=== PATIENT | female | born 1945 | race Caucasian/White ===

== ENCOUNTER 2019-03-24 17:58 | Inpatient (IN) | payer OTHER ==
[~2019-03-24] VITALS: Ht 162.6 cm; Wt 66.1 kg
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
[2019-03-24 19:36] VITALS: BP 147/81
[2019-03-24 19:40] VITALS: BP 155/101
[2019-03-24] MEDS ORDERED: ASA-BUTALB-CAF1 EACH PO (20:00)
[2019-03-24] MEDS ORDERED: WELLBUTRIN XL150 MG (20:00)
[2019-03-24] MEDS ORDERED: CARVEDILOL12.5 MG (20:04)
[2019-03-24] MEDS ORDERED: DEPAKOTE 250MG250 MG PO (20:08)
[2019-03-24] MEDS ORDERED: IRON325 M1 PO (20:10)
[2019-03-24] MEDS ORDERED: LISINOPRIL2.5 MG PO ×2 (20:12→20:14)
[2019-03-24] MEDS ORDERED: MOBIC7.5 MG PO (20:15)
[2019-03-24] MEDS ORDERED: PRAVACHOL40 MG PO (20:15)
[2019-03-24] MEDS ORDERED: SEROPHENE50 MG (20:17)
[2019-03-24] MEDS ORDERED: SEROQUEL 50 MG50 M1 (20:20)
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
[2019-03-25 01:33] LABS: URINE BILIRUBIN NEGATIVE (Negative); URINE BLOOD NEGATIVE (Negative); URINE CLARITY CLOUDY; URINE COLOR YELLOW; URINE GLUCOSE-RANDOM* NEGATIVE (Negative); URINE KETONES TRACE (Negative); URINE NITRITE-REFLEX NEGATIVE (Negative); URINE PROTEIN (DIPSTICK) NEGATIVE (Negative); URINE UROBILINOGEN 0.2 E.U./dl (0.2-1.0)
[2019-03-25 01:37] LABS: URINE LEUKOCYTES-REFLEX 2+ (Negative)
[2019-03-25 01:47] LABS: SQUAMOUS 0-3 Few /LPF (0-3); WBC CLUMPS Few (None Seen)
[2019-03-25 01:48] LABS: BACTERIA-REFLEX >30 Many /HPF (None Seen); CASTS None Seen /LPF (None Seen); CRYSTALS None Seen /LPF (None Seen); MUCUS 0-3 Light strn/LPF (None Seen); URINE RBC 0-2 Rare /HPF (0-2)
[2019-03-25 01:52] VITALS: BP 155/101
[2019-03-25 02:14] VITALS: BP 155/101
[2019-03-25 06:26] LABS: ABSOLUTE NEUTROPHILS 2.3 thou/uL (1.4-8.2); BASOPHILS 0.7 % (0.0-2.0); EOSINOPHILS 3.7 % (0.0-3.0); HEMATOCRIT 39.2 % (37.0-47.0); HEMOGLOBIN 12.8 gm/dL (12.0-15.0); LYMPHOCYTES 39.9 % (24.0-44.0); MCH 30.9 pg (26.0-34.0); MCHC 32.6 g/dL (28.0-37.0); MCV 94.9 fL (80.0-100.0); MONOCYTES 9.1 % (1.0-8.0); PLATELET COUNT 176 thou/uL (150-400); POLYS 46.6 % (36.0-66.0); RBC 4.13 mil/uL (4.20-5.00); RDW 13.6 % (10.5-14.5)
[2019-03-25 06:41] LABS: ALBUMIN 3.1 g/dL (3.4-5.0); CALCIUM 9.3 mg/dL (8.5-10.1); CREATININE 0.9 mg/dL (0.6-1.0); MAGNESIUM 1.9 mg/dL (1.8-2.4); POTASSIUM 3.7 mmol/L (3.5-5.1); TOTAL BILIRUBIN 0.3 mg/dL (<0.1-1.0); TOTAL PROTEIN 6.6 g/dL (6.4-8.2)
[2019-03-25 07:11] LABS: TSH 6.172 uIU/mL (0.358-3.740)
[2019-03-25 08:10] VITALS: BP 170/93
[2019-03-25 09:37] VITALS: BP 170/93
--- NOTE | 2019-03-25 10:00 | NUR ---
0710: Report rec from [facility] shift, care assumed. [id number]: Ambulatory independently in room, halls and to DRJareth Resistant to re-direction and encouragement to eat meals, oriented to name only, pleasant mood upon initial introduction but then became arguementative and refused to eat a.m. meal. Takes meds whole w/o difficulty, needed 3 attempts before pt would take meds. Attended 0900 therapy group, no participation noted. Red/purple bruise noted to top of left hand, approx 3cm circular area, appears to have been from lab draw, will cont to monitor.
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
--- NOTE | 2019-03-25 20:04 | NUR ---
ASSUMED CARE @ 19:15 ON 03/25/19, IN DAY ROOM ORIENTED TO PERSON ONLY. HRRR, LUNGS DIMINISHED, ABD NORMOACTIVE X 4 Q.
[2019-03-25 23:34] VITALS: BP 152/93
--- NOTE | 2019-03-26 01:03 | NUR ---
TOOK HS MEDS WHOLE WITH APPLE JUICE AND YOGART FOR SNACKS. PATIENT HAD DIFFICULTY SWOLLOWING THE LARGER TABLETS. WILL TRY CRUSHING MEDS NEXT TIME IN YOGART OR PUDDING. ORIENTED X 1. WHEN ASKED A QUESTION, RESPONDS WITH A CONFUSED RAMBLING STORY UNRELATED TO THE QUESTION ASKED. AFFECT PLEASANT AND CALM. CONFUSION AND WORD SALAD NOTED. IN BED, WITH BED SET IN LOW POSITION, BED ALARM SET. WILL CONTINUE TO MONITOR Q 12 MINUTES FOR PATIENT SAFETY.
[2019-03-26 01:19] VITALS: BP 152/93
--- NOTE | 2019-03-26 06:34 | NUR ---
SLEPT 7.4 HOURS OVERNIGHT. CONFUSION NOTED, PLEASANT AFFECT. NEEDS MEDS CRUSHED, HAD TROUBLE SWOLLOWING HER LARGE TABLETS.
--- NOTE | 2019-03-26 14:42 | NUR ---
PATIENT WAS IRRITABLE AT FIRST THIS MORNING BUT QUICKLY BECAME MORE POSITIVE MORNING PROGRESSED. HAD MEDICATIONS CRUSHED IN PUDDING AND TOLERATED WELL. DENIES ANY S/I OR H/I - AMBULATES AROUND SLOWLY WITH WALKER. MAKES NEEDS KNOWN AND ATE WELL TODAY. HAD IM OF ROCEPHIN FOR UTI LATER THIS MORNING. ORDERED BY DR. PERRY TO TREAT UTI. TOLERATED WELL. PATIENT HAS BEEN SMILING AND PLEASANT REMAINDER OF THE DAY. QUIET AND NO SIGNS OF AGITAION OR IRRITABILITY TODAY. WAS UP ALL DAY SITTING IN DINING AREA WITH PEERS.
[2019-03-26 20:12] VITALS: BP 125/82
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
[2019-03-26 23:25] VITALS: BP 125/82
--- NOTE | 2019-03-26 23:34 | NUR ---
PATIENT IS COMBATIVE AND YELLING AND HITTING AND TRYING TO BITE CARE STAFF WHEN DOING INCONTINENT CARE. PATIENT SAT ON SIDE OF HER BED QUIETLY AFTER STAFF LEFT. THIS NURSE SPOKE WITH PATIENT AND PATIENT WAS CALM AT THIS TIME. SHE DID GET TEARY AND SAID, " I JUST WANT TO ." I ASKED HER WHY SHE WANTED THIS AND SHE SAID SHE IS JUST TIRED. SHE DOES NOT HAVE A PLAN AND STATES SHE NEEDS TO STAY HERE FOR HER KIDS. PATIENT STOPPED TEARING AND CAME OUT OF ROOM A FEW MINUTES LATER AND WAS SMILING AND CALM. HER GLUCOSE LEVEL WAS 85. PATIENT HAD YOGURT AND PUDDING AND THICKENED HONEY OJ WITH PILLS. PATIENT IS JUST NOW WALKING BACK TO HER ROOM TO LAY DOWN. SHE STATES SHE IS NOT SLEEPY. WILL CONTINUE TO MONITOR.
[2019-03-27 09:26] VITALS: BP 126/79
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
--- NOTE | 2019-03-27 11:54 | NUR ---
PATIENT HAS BEEN UP AND OUT ON THE UNIT ALL MORNING, SAT IN GROUPS, BUT DID NOT FULLY PARTICIPATE. PATIENT TOOK ALL MORNING MEDICATION CRUSHED IN PUDDING WITHOUT DIFFICULTY. APPETITE IN GOOD, PATIENT EATING MEALS AND DRINKING FLUID WELL. PATIENT IS FORGETFULL, AND VERY CONFUSED. PATIENT GOT IRRITABLE WHEN STAFF ATTEMPTED TO ADMINISTER IM ANTIBIOTIC, BUT WAS CALM THEREAFTER. PATIENT DENIES SUICIDAL IDEATION, " AM GOING TO KILL EVERYONE HERE", UNABLE TO APPROPRIATELY RESPOND TO FURTHER ASSESSMENT QUESTIONS DUE TO CUGNITIVE IMPAIRMENT. PATIENT CURRENTLY CALM, SITTING ON THE TABLE FOR LUNCH. NO SIGN OF ACUTE DISTRESS NOTED AT THIS TIME, WILL MONITOR FOR SAFETY.
[2019-03-27 20:10] VITALS: BP 119/69
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
--- NOTE | 2019-03-28 12:30 | EKG ---
[address] [address] ELECTROCARDIOGRAM REPORT Name: PHILIPP HERNANDEZ Room #: 52- ADM IN M.R.#: [id number] Admission: 03/24/19 Attend Phys: Loyd Rodriguez DO Discharge: Date of : 45 Report #: [id number] THIS REPORT FOR: //name// [facility] Test Date: 2019-03-28 Test Time: 11:21:28 Pat Name: PHILIPP HERNANDEZ Department: Room: [facility] Gender: F Inside Sales Trainer: Mauro CORONADO : 1945 Requested By: Loyd Rodriguez Order Number: [id number] MD: Alexandre Ramirez Measurements Intervals [place] Rate: 103 P: 50 SD: 179 QRS: -37 QRSD: 98 T: 57 QT: 390 QTc: 511 Interpretive Statements Sinus tachycardia Left axis deviation Borderline T wave abnormalities Prolonged QT interval No previous ECG available for comparison Electronically Signed On 03-28-2019 12:30:43 OPERATIONS AGENT by Alexandre Ramirez [email or web address] <ELECTRONICALLY SIGNED> By: Alexandre Ramirez MD 03/28/19 1230 1121 1121 MD ZULEYKA Almanzar
[2019-03-28 13:35] VITALS: BP 168/94
--- NOTE | 2019-03-28 13:40 | NUR ---
THE PATIENT HAS BEEN IN BED THROUGH OUT THE DAY QUIET AND CALM. SHE REFUSED AN EKG THIS AM BUT IT WAS TAKEN. THE PATIENT WAS COMPLIANT WITN ACCU CHECKS TWICE TODAY THUS FAR. SHE IS UP AND DOWN REGARDING HER HEALTH CARE. BLOOD SUGAR WAS 51 IN THE AM AND 80 AT NOON. THE PATIENT HAS BEEN COMBATIVE TOWARDS STAFF AND A PRN WAS ADMINISTERED. THE PT'S EXPRESSIONS ARE ANGRY AND IRRITATED. SHE REFUSED TO EAT BUT HAVE BEEN TAKING IN ORANGE JUICE. SHE IS COOPERATIVE AT TIMES AND OTHER TIMES SHE IS NOT. SHE RECIEVES AN ABX INJECTION FOR A UTI. SHE IS RESTING IN HER BED AT THIS TIME.
[2019-03-28 19:35] VITALS: BP 124/95
[2019-03-29 01:07] LABS: HBsAG-EMPLOYEE EXPOSURE Negative (Negative); HCV AB-EMPLOYEE EXPOSURE <0.1 (0.0-0.9)
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
[2019-03-29 08:20] VITALS: BP 116/70
--- NOTE | 2019-03-29 10:16 | NUR ---
ASSISTED UP TO DINNG ROOM FOR BREAKFAST, SHE WAS DRY WHEN WE GOT HER UP, ASSISTED WITH BRIEF AND SHE AMBULATED TO BATHROOM, SHE IS COMPLIANT WITH CARES OF 1, SHE AMBULATES WITH HER WALKER, SHE IS SMILING AND PLEASANT, ATE FAIR AND FLUIDS ENCOURAGED, SHE IS ALERT BUT CONFUSED SHE DOES KNOW HER NAME, BUT NOT SURE OF THE TIME AND PLACE. WILL MONITOR FOR BEHAVIORS AND SAFETY.
[2019-03-29 20:05] VITALS: BP 137/71
--- NOTE | 2019-03-29 23:43 | NUR ---
Care assumed of patient at 1915: Patient alert and oriented to person only. Patient seated at table with peer in day room at start of shift. Patient confused and forgetful. Patient fairly cooperative with nursing assessment. Patient sarcastic, rolling her eyes. Answering questions short and abruptly. Patient primarily answered "no" to any questions asked. Patient took medications whole without difficulty. Patient ate 50% HS snack. Denies pain or discomfort. Denies SI/HI/AH/VH. No s/s of delusional or paranoia behaviors observed. Patient did report that she was ready to go to bed at a reasonable time. Staff walked with patient to her room. While her bedding was being adjusted, patient stated "why do you have to do what you do". Became agitated and irritable. Patient was asked if she needed to use the bathroom. Patient responded in disorganized speech with an agitated tone of voice. Patient resistive to any questions or help offered. Patient has been able to rest quietly in bed.
[2019-03-30 07:43] VITALS: BP 118/65
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
--- NOTE | 2019-03-30 19:26 | NUR ---
NO DOCUMENTED BM SINCE 03/24-PT UNABLE TO PROVIDE ACCURATE HX RE BM-WHEN ASKED STATES "HE WENT OVER THERE TO THE DOOR" ABDOMEN NON-TENDER AND DENIES ANY ABDOMINAL PAIN/DISCOMFORT-BS X4-ABDOMEN ROUNDED,SLIGHTLY DISTENDED BUT SOFT. MOM GIVEN PO PRN AT 1830-UP USING ROLLER WALKER IN HALLWAY AT SHIFT CHANGE AND GAIT WAS STEADY WITH ASSISTIVE DEVICE-IRRITABLE ABRUPT RESPONSES WHEN APPROACHED BY NURSING-DID SIT BACK DOWN IN DAYROOM AFTER APPROX 15 MINUTES WALKING AND IS SITTING QUIETLY AT THIS TIME
[2019-03-30 20:13] VITALS: BP 111/77
--- NOTE | 2019-03-31 02:10 | NUR ---
ASSUMED CARE ON 03/30/19 @ 19:15, IN DAY ROOM SITTING IN CHAIR AT A TABLE. WHEN GIVEN A SNACK, PLAYED IN THE YOGART INSTEAD OF EATING IT. ORIENTED X1 TO PERSON ONLY, DEMENTIA OBSERVED, WITH DISORGANIZERD ANSWERS TO ASSESSMENT QUESTIONS. LABILE, SMILES, AND GIVES ONE WORD ANSWERS, THEN HITS STAFF WHEN APROACHING WITH IN ARMS REACH. TAKES MEDS WHOLE WITH YOGART SPOONFULS TO AID SWOLLOWING. AMBULATES WITH WALKER. WILL MONITOR Q 12 MINUTES FOR PATIENT SAFETY.
[2019-03-31 06:06] VITALS: BP 111/77
[2019-03-31 09:05] VITALS: BP 104/57
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
[2019-03-31 19:15] VITALS: BP 104/72
--- NOTE | 2019-04-01 04:44 | NUR ---
ASSUMED CARE @ 19:15 ON 03/31/19, SITTING IN A CHAIR AT A TABLE IN THE DAY ROOM. TALKING AND SOCIALIZING WITH PEERS. WHEN ASSESSMENT DONE, PT ANSWERS NONSENSCE AND OFF TOPIC ANSWERS TO THE QUESTIONS POSED. ORIENTED TO PERSON AND ONLY, CANNOT STATE LAST NAME OR TODAYS DATE. OX1-2. MEDS GIVEN WHOLE WITH PUDDING AND APPLESAUCE. NOTED THAT PATIENT WILLINGLY TOOK MEDS, HOWEVER HAD TROUBLE SWOLLOWING AND CHEWED MEDS THEN CONTINUED EATING SPOONFULS OF APPLESAUCE TO BE ABLE TO SWOLLOW MEDS. SLEPT SOUNDLY IN BED AFTER 2129, BED IN LOW POSITION, BED ALARM SET, MONITORING Q 12 MINTUES FOR PATIENT SAFETY.
[2019-04-01 05:29] VITALS: BP 104/72
--- NOTE | 2019-04-01 05:50 | NUR ---
SLEPT 6.4 HOURS OVERNIGHT
[2019-04-01 08:59] VITALS: BP 116/62; BP 133/81
--- NOTE | 2019-04-01 12:31 | NUR ---
COOPERATIVE WITH TAKING AM MEDICATIONS-MOOD VARIABLE SO FAR THIS AM-INITALLY CALM AND COOPERATIVE-WHEN APPROACHED AT [place] FOR ASSESSMENT WAS NOTED TO BE IRRITABLE/DYSPHORIC-WHEN ASKED IF SHE WAS UPSET STATES "YES" AND BEGAN A LONG RAMBLING,FRAGMENTED DIALOGE-INCOHERENT. FOLLOWED UP ON NO BM DOCUMENTED SINCE 03/24 AND PT NOT ABLE TO ANSWER-BS ACTIVE X4 AND NO DISTENSION/ABDOMINAL TENDERNESS NOTED DURING EXAM
[2019-04-01 20:00] VITALS: BP 105/67
[2019-04-01 20:10] VITALS: BP 105/67
--- NOTE | 2019-04-02 01:33 | NUR ---
PATIENT WAS SITTING IN DINING ROOM AT A TABLE EARLIER THIS EVENING. PATIENT WAS VERY HATEFUL AND IRRITATBLE I STOPPED TO ASK HOW SHE WAS DOING AND ASK ABOUT HER PAIN LEVEL. SHE APPEARED SUSPICIOUS AND ANGRY. SHE DOES NOT MAKE ALOT OF SENSE AND HER CONVERSATION IS A WORD SALAD. PATIENT HAD DRANK A CUP OF TEA AND A CUP OF WATER WITH HER MEDS TONIGHT. SHE ATE ICECREAM FOR A SNACK. SHE TRIES TO BE INDEPENDENT SHE CAN AND SCOLDED ME FOR OFFERING TO OPEN HER ICE CREAM CUP FOR HER. SHE SAID," I CAN DO THAT," SHE GRABBED IT AWAY FROM ME. PATIENT WALKS WITH WALKER. SHE IS UNSTEADY AT TIMES WHEN SHE GET TOO TIRED FROM WALKING. PATIENT'S MOOD SHIFTED AGAIN WHEN I GAVE HER HS MEDS TO HER. SHE SMILED AND WAS PLEASANT AND SAID THANK YOU. SHE IS WITHDRAWN FROM OTHER PATIENTS AND SITS OFF TO THE SIDE OF THE DINING ROOM BY HERSELF ALOT. SHE IS SLEEPING IN BED NOW WITH BED ALARM ON AND BED IN LOW POSITION. CONTINUING TO MONITOR.
--- NOTE | 2019-04-02 03:22 | NUR ---
ASSISTED PATIENT TO THE BATHROOM. SHE WAS DROWSY AND MOVING VERY SLOW WITH WALKER. I ASSESSED HER FOR PAIN AND SHE ANSWERED YES. WHEN I ASKED HER TO POINT OR TELL ME WHERE. SHE EXPRESSED IN WORD SALAD AND HER FACE HAD A LOOK OF DISCOMFORT. SHE FINALLY SAID HEAD AND BACK. REPOSITIONED HER AND ACETAMINOPHEN 650 MG GIVEN PO. PATIENT BACK TO SLEEP.
--- NOTE | 2019-04-02 07:00 | NUR ---
Assumed care of patient this am. Patient sitting in wheelchair in [facility]. Patient in good spirits this am. Patient compliant with medications and takes them crushed in applesauce. Patients affect suspicious. Patient speaks quietly a few words at a time. Patient is confused this am. Patients assessment reveals clear breath sounds, active bowel sounds, and s1 s2 present on auscultation. Patient ambulates via wheelchair.
[2019-04-02 07:30] VITALS: BP 135/97
[2019-04-02 11:39] VITALS: BP 135/97
[2019-04-02 19:54] VITALS: BP 119/71
--- NOTE | 2019-04-03 04:29 | NUR ---
191-Report received from day shift and care assumed. She had a bright affect, smiling at times while talking with others in the day room. She was med. compliant with her HS meds. crushed and put in pudding. She was not aggressive this evening, cooperative with ADL cares and slept well tonight. She answered questions asked yes or no.
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
[2019-04-03 08:59] VITALS: BP 126/84
[2019-04-03 09:44] VITALS: BP 126/84
--- NOTE | 2019-04-03 13:54 | NUR ---
0700: rEPOR TGIVEN AND ASSUMED CARE. PT SEATED AT THE ACTIVITY ROOM. CALM AND PLEASANT. PT ATE BREAKFAST AND TOOK MORNING MEDICAITON WITHOUT ANY PROBLEM. 1100: PT HAD A SHOWER. HOSPITALIST PASSED BY TALKED AND ASSESSED HER. SHE WAS COOPERATIVE. 1245: pT TOOK LUNCH AND MEDS OK. CALM AND COOPERATIVE 1999: RELAXED AT THE ACTVITY ROOM.
--- NOTE | 2019-04-03 16:52 | NUR ---
[place] on the Previous note i wrote 2000 instead of 1400. Pt had a great afternoon. Calm and cooperative. Eaten dinner and took all the medications well. No signs of aggressive. Will continue with the plan of care.
--- NOTE | 2019-04-03 17:48 | NUR ---
RM contacted [facility] to follow-up on the updates that were sent. She spoke with Mary who said that pt is still too aggressive to return. RM explained pt is at baseline. Mary stated that pt may not be able to return to their facility. RM asked if they were willing to help find placement. Mary said she had to speak with her director and get back with RM. SW team will continue to follow pt during her stay.
[2019-04-03 20:07] VITALS: BP 138/85
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
--- NOTE | 2019-04-04 12:33 | NUR ---
JENNIFER received a phone call from Cassi with [facility] who said they are willing to take pt back and asked for a d/c date. After JENNIFER talked with the psych doctor, she explained to Cassi that her depakote and antipsychotic meds will be increased so he would like to monitor her throughout the weekend. If everything goes ok, he would like to d/c on Sunday 04/08. Jennifer team will continue to follow pt during her stay.
--- NOTE | 2019-04-04 16:20 | EKG ---
[place] [address] [employer] [place] [address] ELECTROCARDIOGRAM REPORT Name: PHILIPP HERNANDEZ Room #: 52- ADM IN M.R.#: [id number] Admission: 03/24/19 Attend Phys: Loyd Rodriguez DO Discharge: Date of : 45 Report #: [id number] THIS REPORT FOR: //name// [facility] Test Date: 2019-04-04 Test Time: 11:58:08 Pat Name: PHILIPP HERNANDEZ Department: Room: [facility] Gender: F System Dispatcher: Mauro CORONADO : 1945 Requested By: Loyd Rodriguez Order Number: [id number] MD: Jerel Carias Measurements Intervals [place] Rate: 79 P: 50 [place]: 152 QRS: -20 QRSD: 113 T: QT: 384 QTc: 441 Interpretive Statements Sinus rhythm T wave abnormality, diffuse leads Compared to ECG 03/28/2019 11:21:28 Sinus tachycardia no longer present Prolonged QT interval no longer present Electronically Signed On 04-04-2019 16:19:43 STAFFING MGR by Jerel Carias [email or web address] <ELECTRONICALLY SIGNED> By: Jerel Carias MD, [facility] 04/04/19 1619 1158 1158 Jerel Carias MD, [facility] /EPI
--- NOTE | 2019-04-04 18:36 | NUR ---
0800 States lower legs hurt, unable to articulate type of pain. Some resistance with getting to commode but after she was out to table she was compliant and cooperative. Much more relaxed and appeared more comfortable. Orientated to self. Denies SI/HI. Confused speech. Breath sounds clear t/o, bilaterally equal. Reg HR auscultated. Color pink with brisk capillary refill. Active bowel sounds over soft, round abdomen. Slightly reddened area under L breast. Cleaned and dried. 1800 Sat at table most of day. Quiet and cooperative. No s/o distress. Compliant.
[2019-04-04 20:30] VITALS: BP 109/69
--- NOTE | 2019-04-05 02:25 | NUR ---
1909-Report received from the day shift nurse and care assumed. She was eating a snack and drinking juice in the evening at a table, was cooperative with taking her HS meds. and sat in the [place] until getting sleepy and wanted to go to her bed for the nite. She talked with word rhett, had a calm affect, and was not aggressive with ADL's with staff assistance before going to sleep. She slept well tonite thus far.
[2019-04-05 07:10] VITALS: BP 120/75
--- NOTE | 2019-04-05 14:19 | NUR ---
0730 Sitting at table, appears to be crying without tears, facial grimacing, tense. Rambling talk, confused when asked about pain. Brought back to room for assessment. Rubbing L thigh, continues to grimace. Tylenol given PO per prn order. Refuses to ambulate to commode. Breath sounds clear t/o, bilaterally equal. Color pink with brisk capillary refill and palpable peripheral pulses. Regular HR auscultated.
[2019-04-05 20:07] VITALS: BP 102/52
--- NOTE | 2019-04-05 23:38 | NUR ---
ASSUMED CARE ON 04/05/19 @ 1900, SITTING IN DAY ROOM AT A TABLE. FACING TV, BUT DOES NOT SEEM TO BE WATCHING IT. CONFUSION NOTED. WHEN SPEAKS, SAYS WORDS, BUT NO UNDERSTANDABLE SENTENCE IS PRODUCED. WHEN ANSWERS QUESTIONS, DOES NOT SAY ANYTHING RELATED TO THE QUESTION TOPIC. WORD SALAD NOTED. COOPERATED WITH ASSESSMENT, BUT UNABLE TO RESPOND D/T CONFUSION AND DEMENTIA. TOOK HS MEDICATIONS WHOLE WITH APPLESAUCE AND WATER. WILL CONTINUE TO MONITOR Q 12 MINUTES FOR PATIENT SAFETY.
[2019-04-05 23:42] VITALS: BP 102/52
--- NOTE | 2019-04-06 06:26 | NUR ---
SLEPT 7.8 HOURS OVERNIGHT
--- NOTE | 2019-04-06 07:01 | NUR ---
PATIENT BIT STAFF ON THE RIGHT FOREARM WHEN GIVING AM CARES. BITE BROKE THE SKIN.
[2019-04-06 07:42] VITALS: BP 115/81
--- NOTE | 2019-04-06 09:16 | NUR ---
COMPLIENT WITH TAKING AM MEDS-DENIES PAIN/DISCOMFORT DURING AM SOCIAL MEDIA DESIGNER-SLOW TO RESPOND TO VERBAL DIRECT OR QUESTIONS ASKED. RESPONSES ARE OFTEN TIMES FRAGMENTED-INCOHERENT. LOOKS AT AM MEDS IF UNSURE WHAT TO DO WITH THEM -UNABLE TO FOLLOW VERBAL COMMAND TO PUT IN MOUTH-BUT ALLOWED STAFF TO PLACE MEDS IN MOUTH
[2019-04-06 19:57] VITALS: BP 145/101
--- NOTE | 2019-04-07 02:45 | NUR ---
ASSUMED CARE OF PATIENT AT APPROXIMATELY 1915, SHE HAS BEEN CALM AND COOPERATIVE SHE APPEARS WITH A FLAT BLUNTED AFFECT ET LABILE MOOD. SHE HAS NOT PRESENTED WITH ANY AGGRESSIVE BX THUS FAR. SHE DOES STATE 'WELL IM DOING OKAY.' SHE ASKED FOR ITEMS AND HELP WITH ADLS TO WHICH SHE THANKED STAFF. SHE DENIES SI SH AND HALLUCINATIONS AND DOES NOT APPEAR TO BE RESPONDING TO INTERNAL STIMULI. SHE DID NOT REPORT ANY MEDICAL CONCERNS WITH NO S/S OF DISTRESS. NURSING WILL MAINTAIN ALL PRECAUTIONS TO ENSURE SAFETY AT ALL TIMES.
[2019-04-07 07:48] VITALS: BP 128/87
--- NOTE | 2019-04-07 12:39 | NUR ---
RM contacted [facility] and spoke with Cassi. RM arranged for pt to d/c on 04/09/19 @4216. RM faxed updates to [facility] [phone]. RM team will continue to follow pt during her stay.
--- NOTE | 2019-04-07 12:49 | NUR ---
RM contacted [facility] and arranged transportation for pt on 04/09/19 @0094. SW team will continue to follow pt during her stay.
--- NOTE | 2019-04-07 12:56 | NUR ---
RM notified Aide Queen that pt will be returning to [facility] on 04/09/19 @ 4110. She did not have any questions at this time. [facility] [address] [place] [address]
--- NOTE | 2019-04-07 15:50 | NUR ---
Up at table without s/o distress. Orientated to self. Confused speech when asked about SI/HI/pain. Eats independently and was compliant with meds. Breath sounds clear t/o, bilaterally equal. Regular HR auscultated. Color pink with brisk capillary refill and palpable peripheral pulses. Active bowel sounds over soft, round abdomen. Skin under breasts, abdomen without redness or breakdown, improved from 2 days ago. Sitting in WC in day room most of day watching TV and participating in group.
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
[2019-04-07 20:19] VITALS: BP 123/83
[2019-04-07 21:45] VITALS: BP 123/83
--- NOTE | 2019-04-08 03:23 | NUR ---
PATIENT HAS BEEN CALM AND COOPERATIVE TONIGHT. SHE SAT UP AT A TABLE IN THE DINING ROOM UNTIL SHE WENT TO BED AROUND 2230. PATIENT USES A WC AND STAYS TO HERSELF. PATIENT ATE A SNACK OF YOGURT TONITE FOR HS SNACK. SHE IS ON NECTAR THICK FLUIDS. SHE TOOK HER PILLS CRUSHED IN YOGURT TONIGHT. SHE DENIES PAIN. SHE APPEARS SUSPICIOUS AND IS UNPREDICTABLE IN HER MOOD AND BEHAVIOR. PATIENT WAS COMBATIVE WITH CARES WHEN LYE TREATER AND MALE NURSE WERE HELPING HER TO BED. SHE DID CALM DOWN QUICKLY WHEN LEFT TO SLEEP AND HAS BEEN SLEEPING SO FAR TO THIS POINT. PATIENT BED ALARM ON AND IN LOW POSITION. CONTINUE TO MONITOR.
--- NOTE | 2019-04-08 05:59 | NUR ---
PATIENT WAS ASSISTED TO BSC BY THIS NURSE. SHE VOIDED SMALL AMOUNT. PATIENT'S CLOTHES AND ADL'S PERFORMED WITHOUT INCIDENT. PATIENT UP TO WC WITH LAP NITZA NEEDED. PATIENT CALM AND SITTING AT A TABLE LOOKING THRU A NEWSPAPER. PATIENT SLEPT 7 HOURS LAST NIGHT BUT SAYS SHE DOESN'T THINK SHE SLEPT WELL. PATIENT DENIES PAIN OR DISCOMFORT. ABDOMEN SOFT WITH POSITIVE BOWEL SOUNDS BUT NO BM THIS MORNING. WILL CONTINUE TO MONITOR. PATIENT SMILING THIS MORNING.
--- NOTE | 2019-04-08 09:43 | NUR ---
PT UP IN W/C FOR BREAKFAST NO BITING. TOOK AM MEDS ATE BREAKFAST. PT DRESSED CALM AND RELAXED.
[2019-04-08 09:56] VITALS: BP 118/75
[2019-04-08 10:24] VITALS: BP 118/75
--- NOTE | 2019-04-08 13:35 | NUR ---
PT UP IN W/C IN DINING ROOM STATES NO PAIN AND NO FACIAL GRIMACING. PT ATE 75% LUNCH AFTER SET UP.NO BITING. PT HAS BEEN KIND AND QUIET. TOILETED BY PRODUCE PRODUCTION TEAM MEMBER.
[2019-04-08 20:28] VITALS: BP 134/64
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
[2019-04-09 07:58] VITALS: BP 119/80
--- NOTE | 2019-04-09 11:22 | NUR ---
RM received a vm from Cassi with [employer] asking for a return call due to pt's notes that she has been biting. Cassi is concerned that this is a new behavior. RM explained that pt is at her baseline; however, the medical staff noticed that if pt is approached from behind or reached across she is more likely to bite. Possibly because she has hearing deficits. Cassi said they will get her hearing checked when she returns. Cassi also asked that RM fax discharge paperwork to [phone]. RM contacted [facility] to confirm 1430 pick and shovel man. RM team will continue to follow pt during her stay. [employer] [address] [place] [address]
--- NOTE | 2019-04-09 12:18 | NUR ---
PATIENT HAS BEEN UP IN DINING AREA. CALM AND AGREEABLE. UNDERSTANDS SHE IS DISCHARGING TODAY. SMILES TO ACKNOWLEDGE WHAT IS SAID TO HER. APPETITE FAIR - NEEDED ENCOURAGEMENT WITH LUNCH. CAN FEED SELF BUT WILL ALLOW YOU TO - PATIENT MEDICATION COMPLIANT - CRUSHED IN YOGURT. HAS DIFFICULTY AND CHEWS PILLS AT TIMES. NO AGGRESSION OR AGITATION NOTED THIS MORNING. STATED NO PAIN DISCOMFORT WHEN QUESTIONED.
[2019-04-09] MEDS ORDERED: DEPAKOTE 250MG250 M1 PO (12:59)
[2019-04-09] MEDS ORDERED: SEROQUEL 100 M100 M1 PO ×2 (13:00→13:01)
[2019-04-09] MEDS ORDERED: SEROQUEL 25 MG25 M1 PO (13:02)
[2019-04-09] MEDS ORDERED: MILK OF MA2400 MG/11 PO (13:02)
--- NOTE | 2019-04-09 14:54 | NUR ---
PATIENT DEPARTED TO [facility]IA [facility]. PICKED UP AT THREE OCLOCK AT 1455. SHE HAD HER DRESS AND SHOES ANAD ALL DOCUMENTATION SENT WITH HER. PATIENT TOOK HER LAST SEROQUEL SCHEDULED FOR 1500.
--- NOTE | 2019-04-10 09:56 | NUR ---
D/C RM Note RM faxed d/c docs for pt to [phone] to [facility]. No other needs for RM team to address at this time.
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
--- NOTE | 2019-04-15 09:55 | HC ---
[facility] [place] [address] CONSULTATION Name: PHILIPP HERNANDEZ Room #: 2B- DIS IN M.R.#: [id number] Admission: 03/24/19 Attend Phys: Loyd Rodriguez DO Discharge: 04/09/19 Date of : 45 Report #: [id number] THIS REPORT FOR: //name// CC: Loyd Rodriguez [facility] physician/PCP DATE OF SERVICE: 03/24/2019 ATTENDING PHYSICIAN: Loyd Rodriguez DO REASON FOR CONSULTATION: Medical management for a patient who was admitted with verbal and physical aggressive episodes and increased confusion. HISTORY OF PRESENT ILLNESS: The patient is a very pleasant 73-year-old female who is resting in her room, 522B, when she was seen with the RN on the [address] [place] [address] Unit, present at the bedside. The patient responded to her name and informed me that she is feeling fine and just a little tired. Otherwise, she is doing okay. The patient was brought from [facility] to here after she was sent to the [facility] Room from the halfway, basically for increased combativeness and medical noncompliance, also telling the EMS that she wants to . The patient, however, has not had any attempt of suicide and increased combativeness and aggressive behavior were the main reason that the patient was transferred from halfway. The patient has not had any recent fevers, shaking chills or night sweats. She was actually seen in the Emergency Room where she had CT scan of the head, which basically showed atrophy of the brain and she had electrocardiogram, which indicated a QT interval of [address]-T abnormalities. The patient's baseline uses a walker at the halfway and has not had any recent fall or trauma. PAST MEDICAL HISTORY: Significant for: 1. Hypertension. 2. Spinal stenosis. 3. Degenerative joint disease. 4. Alzheimer's dementia. 5. Depression. 6. Anxiety disorder. ALLERGIES: No known drug allergies. CURRENT MEDICATIONS: 1. Aspirin 81 mg daily. 2. Bupropion 150 mg XL daily. 3. Carvedilol 6.25 b.i.d. 4. Depakote 250 mg daily. 5. Ferrous sulfate 325 mg daily. 6. Lisinopril 5 mg [address] [address] CONSULTATION Name: PHILIPP HERNANDEZ Room #: 522B-B DIS IN M.R.#: [id number] Admission: 03/24/19 Attend Phys: Loyd Rodriguez DO Discharge: 04/09/19 Date of : 45 Report #: [id number] 7. Meloxicam 15 mg daily. 8. Seroquel 150 mg p.o. 3 times a day. 9. Topical cream. 10. Pravastatin 40 mg daily. 11. Ondansetron and Tylenol p.r.n. PRIMARY CARE PHYSICIAN: Dr. Irasema Melgar. CODE STATUS: The patient is a full code. PAST SURGICAL HISTORY: Significant for: 1. Bilateral knee replacement. 2. Left oophorectomy. 3. Distal radial fracture. 4. Carpal tunnel release. PAST MEDICAL HISTORY: Also significant for diabetes mellitus type 2 and hypertension and chronic systolic congestive heart failure. FAMILY HISTORY: Significant for Alzheimer's disease and cardiomyopathy. PERSONAL AND SOCIAL HISTORY: The patient is a lifetime nonsmoker and occasionally takes alcohol. Denies any drug use. The patient's gmrupxmi-ld-[id number] is a durable power of business attorney for health, and 10-point review of systems was done and basically was negative. The patient denies any complaints at all. However, physical examination was indicated of abdominal tenderness. PHYSICAL EXAMINATION: VITAL SIGNS: Temperature 36.9, heart rate 86, respirations 18, blood pressure 155/101, pulse oximetry 96% on room air. GENERAL: Alert and awake, pleasant female who is not oriented to time, place and person and is in no acute distress. HEENT: Normocephalic, atraumatic. Pupils equally round, reactive to light. Conjunctivae clear. Sclerae nonicteric. Extraocular muscle movement intact. The patient is able to follow directions. Oropharynx clear. NECK: Supple. No JVD, no lymphadenopathy. HEART: S1, S2, regular. No murmur, no S3, no S4. LUNGS: Clear to auscultation bilaterally, without any crackles or wheezes. ABDOMEN: Soft, nontender, nondistended. Normal active bowel sounds in the epigastric and upper quadrant. No hepatosplenomegaly noted. However, the patient had significant tenderness in both lower quadrants as well as in the suprapubic area. NEUROLOGICAL: Nonfocal. MUSCULOSKELETAL: Well-healed scar of bilateral total knee replacement. LABORATORY DATA: CBC, comprehensive metabolic panel, TSH, A1c were ordered; [facility] [place] [address] [place] [address] CONSULTATION Name: PHILIPP HERNANDEZ Room #: [facility] IN M.R.#: [id number] Admission: 03/24/19 Attend Phys: Loyd Rodriguez, DO Discharge: 04/09/19 Date of : 45 Report #: [id number] however, they have not been drawn yet and KUB because of the lower quadrant was done, and the patient had scattered nondistended small bowel loops, most likely ileus or enteritis and no significant distention to suggest obstruction, moderate stool, occasional scattered throughout the colon noted. ASSESSMENT AND PLAN: 1. Depression with aggressive behavior and verbal as well as physical noted and with suicidal ideation. Plan will be formulated by Dr. Loyd Rodriguez. The patient is on one-on-one observation in a secure Behavioral Unit. Fall precautions to be practiced. 2. Hypertension, not at goal. We will resume lisinopril and carvedilol, and we will assess medications as needed. 3. Hyperlipidemia. We will continue statin. The patient has been taking at home. 4. Diabetes mellitus type 2. We will do sliding scale insulin and check. 5. Spinal stenosis and degenerative joint disease. The patient is on meloxicam; however, with diabetes and hypertension and the kidney function not known, I would go ahead and hold meloxicam and will just use Tylenol. 6. Abdominal tenderness with possible constipation or ileus. We will give Dulcolax suppository b.i.d. scheduled and repeat KUB in 24 hours and we will also check bladder scan to make sure the patient does not have urinary retention. 7. Code Status: The patient is full code. 8. Deep venous thrombosis prophylaxis. We will use Lovenox once her kidney function is available and encourage the patient to ambulate more frequently. 9. Gastrointestinal prophylaxis, we will use proton pump inhibitor as the patient has been on nonsteroidal anti-inflammatory drugs. 10. Plan of care was discussed with RN taking care of the patient. <ELECTRONICALLY SIGNED> By: Alba Lucio MD 04/15/19 0955 0002 1110 Alba Lucio MD /nt
== END 2019-04-09 15:07 | disposition short-term general hospital (02) | DRG 57 ==
LOC: SBH 17:58
PROVIDERS: Internal Medicine; ADMIT Psychiatry & Neurology Psychiatry
DX: G30.9 Alzheimer's disease, unspecified (principal); F01.51 Vascular dementia, unspecified severity, with behavioral disturbance; F02.81 Dementia in other diseases classified elsewhere, unspecified severity, with behavioral disturbance; R47.01 Aphasia; I50.22 Chronic systolic (congestive) heart failure; R45.851 Suicidal ideations; E78.5 Hyperlipidemia, unspecified; E11.9 Type 2 diabetes mellitus without complications; D50.9 Iron deficiency anemia, unspecified; M19.90 Unspecified osteoarthritis, unspecified site; F32.9 Major depressive disorder, single episode, unspecified; F41.9 Anxiety disorder, unspecified; Z96.653 Presence of artificial knee joint, bilateral; I11.0 Hypertensive heart disease with heart failure; M48.00 Spinal stenosis, site unspecified; K59.00 Constipation, unspecified; Z87.81 Personal history of (healed) traumatic fracture; Z90.721 Acquired absence of ovaries, unilateral; Z82.49 Family history of ischemic heart disease and other diseases of the circulatory system
CPT/HCPCS: 10880